=== PATIENT | male | born 1990 | race African-American/Black ===

== ENCOUNTER 2018-06-25 14:51 | Emergency (ER) | payer OTHER ==
[~2018-06-25] VITALS: Ht 182.9 cm; Wt 68.0 kg
[2018-06-25] MEDS ORDERED: ROBAXIN500 MG PO (16:06)
[2018-06-25 16:14] VITALS: BP 137/90
== END 2018-06-25 16:15 | disposition home or self-care (01) ==
LOC: M.ERS 14:51
DX: S16.1XXA Strain of muscle, fascia and tendon at neck level, initial encounter (principal); S39.012A Strain of muscle, fascia and tendon of lower back, initial encounter; F17.200 Nicotine dependence, unspecified, uncomplicated; J45.909 Unspecified asthma, uncomplicated; V49.40XA Driver injured in collision with unspecified motor vehicles in traffic accident, initial encounter; Y92.481 Parking lot as the place of occurrence of the external cause; Y93.89 Activity, other specified; Y99.8 Other external cause status

== ENCOUNTER 2020-01-21 15:40 | Emergency (ER) | payer OTHER ==
[~2020-01-21] VITALS: Ht 182.9 cm; Wt 72.6 kg
[~2020-01-21 15:40] MED LIST: ROBAXIN500 MG PO
[2020-01-21 16:18] LABS: INFLUENZA A ANTIGEN Negative (Negative); INFLUENZA B ANTIGEN Negative (Negative)
[2020-01-21] MEDS ORDERED: ONDANSETRON HCL4 M2 PO (16:34)
[2020-01-21] MEDS ORDERED: ZPAK PO (16:34)
[2020-01-21] MEDS ORDERED: VENTOLIN HFA 1818 GM INH (16:34)
[2020-01-21 16:45] VITALS: BP 122/74
== END 2020-01-21 16:45 | disposition home or self-care (01) ==
LOC: M.ERS 15:40
PROVIDERS: Nurse Practitioner Family
DX: J98.9 Respiratory disorder, unspecified (principal); J45.909 Unspecified asthma, uncomplicated